=== PATIENT | male | born 1990 | race Caucasian/White ===

== ENCOUNTER 2024-10-08 10:30 | Emergency (ER) | payer SELFPAY ==
[2024-10-08 10:46] VITALS: RESP 18; TEMP 98; O2SAT 100
[2024-10-08] MEDS ORDERED: TORAdol 30 mg Injection ONE (11:22)
[2024-10-08] MEDS ORDERED: Norflex 60 MG/2 ML ONE (11:22)
[2024-10-08] MEDS: Norflex 60 MG/2 ML IM ONE (11:24)
[2024-10-08] MEDS: TORAdol 30 mg Injection IM ONE (11:25)
--- NOTE | 2024-10-08 11:30 | ERPHSYRPT ---
- History of Present Illness Time Seen by Provider: 10/08/24 11:27 Source: patient Exam Limitations: no limitations Patient Subjective Stated Complaint: C/O left neck, shoulder, arm pain for a week. Denies falls or injury. States, "I originally thought I just slept on it w ana but the pain wont' go away." Triage Nursing Assessment: Patient ambulated back to ER. He is alert and oriented. SKin tone normal. No SOB. No skin alterations noted to areas of reported pain. Physician History: C/O left neck, shoulder, arm pain for a week. Denies falls or injury. States, "I originally thought I just slept on it wrong but the pain wont' go away." Occurred: last week Method of Injury: unknown Quality: constant Severity of Pain-Max: moderate Severity of Pain-Current: moderate Extremities Pain Location: shoulder: left, arm: left Modifying Factors: Improves With: nothing Associated Symptoms: none Body Map: 1 - area of pain Allergies/Adverse Reactions: No Known Drug Allergies Allergy (Verified 10/08/24 10:39) Hx Tetanus, Diphtheria Vaccination/Date Given: Yes Immunizations Up to Date: Yes Travel Risk - International Travel Have you traveled outside of the country in past 3 weeks: No - Emerging Infectious Disease Are you exhibiting symptoms associated with any current EIDs: No - Review of Systems Constitutional: No Symptoms Eyes: No Symptoms Ears, Nose, & Throat: No Symptoms Respiratory: No Symptoms Cardiac: No Symptoms Abdominal/Gastrointestinal: No Symptoms Genitourinary Symptoms: No Symptoms Musculoskeletal: Neck Pain, Joint Pain, No Fall, No Injury, No Joint Redness, No Joint Swelling Skin: No Symptoms Neurological: No Symptoms Psychological: No Symptoms - Past Medical History Pertinent Past Medical History: Yes Psycho-Social History: Bipolar, Other Other Medical History: PTSD - Past Surgical History Past Surgical History: Yes Other Surgical History: left wrist - Social History Smoking Status: Former smoker Exposure to second hand smoke: Yes Drug Use: marijuana - Social Determinants of Health Will the patient participate in the screening: Declined to provide - Nursing Vital Signs Nursing Vital Signs: Initial Vital Signs Blood Pressure 130/81 10/08/24 10:39 O2 Sat by Pulse Oximetry 99 10/08/24 10:39 Pain Scale Pain Intensity 6 - Physical Exam General Appearance: no apparent distress Eyes, Ears, Nose, Throat Exam: normal ENT inspection Neck Exam: normal inspection Cardiovascular/Respiratory Exam: chest non-tender Abdominal Exam: non-tender Back Exam: normal inspection Shoulder Exam: normal ROM, pain, soft tissue tenderness, No no evidence of injury, No bone tenderness, No deformity Elbow/Forearm Exam: normal inspection Wrist Exam: normal inspection Hand Exam: normal inspection DTR - Upper Extremity Exam: bicep (R): 2+, bicep (L): 2+, tricep (R): 2+, tricep (L): 2+ Neuro/Tendon Exam: normal sensation, normal motor functions, normal tendon functions, responds to pain, no evidence tendon injury Mental Status Exam: alert, oriented x 3, cooperative Skin Exam: normal color SpO2 Interpretation: normal SpO2: 100 O2 Delivery: Room Air - Course Nursing assessment & vital signs reviewed: Yes - Radiology Exams C-Spine X-ray Interpretation: Interpreted by me, Reviewed by me, Negative, No Fracture, No Subluxation Shoulder X-ray Interpretation: Interpreted by me, Reviewed by me, Negative, No Fracture, No Subluxation Ordered Tests: Active Orders 24 hr Category Date Time Status CERVICAL SPINE (2 OR 3 VIEW) Stat Exams 10/08/24 11:09 Taken SHOULDER Stat Exams 10/08/24 11:09 Taken Medication Summary Discontinued Medications Generic Name Dose Route Start Last Admin Trade Name Rodriguez PRN Reason Stop Dose Admin Ketorolac Tromethamine 60 mg 10/08/24 11:10 10/08/24 11:25 Ketorolac Tromethamine 30 Mg/Ml Inj IM 10/08/24 11:11 60 mg STAT ONE Administration Ketorolac Tromethamine Confirm 10/08/24 11:22 Ketorolac Tromethamine 30 Mg/Ml Inj Administered 10/08/24 11:23 Dose 60 mg .ROUTE .STK-MED ONE Orphenadrine Citrate 60 mg 10/08/24 11:10 10/08/24 11:24 Orphenadrine Citrate 60 Mg/2 Ml Vial IM 10/08/24 11:11 60 mg STAT ONE Administration Orphenadrine Citrate Confirm 10/08/24 11:22 Orphenadrine Citrate 60 Mg/2 Ml Vial Administered 10/08/24 11:23 Dose 60 mg .ROUTE .STK-MED ONE - Progress Progress: improved, pain not gone completely Counseled pt/family regarding: need for follow-up, rad results Medical Desision Making - Independent Historian Additional History obtained from: Family - Diagnostic Testing Radiological Interpretation: Interpreted by me, Reviewed by me - Risk of complications Minimal Risk: Minimal risk of morbidity - Departure Departure Disposition: Home Clinical Impression: Bicipital tendinitis, left shoulder Left shoulder strain Qualifiers: Encounter type: initial encounter Qualified Code(s): S46.912A - Strain of unspecified muscle, fascia and tendon at shoulder and upper arm level, left arm, initial encounter Condition: Stable Critical Care Time: No Referrals: JG DALY MD [ACTIVE STAFF] - [facility] M-[id number] Instructions: Shoulder Tendinopathy (DC), Biceps tendinopathy Additional Instructions: Discharge/Care Plan MARIANA BEDOLLA was seen on 10/08/24 in the Emergency Room. The patient was counseled regarding Diagnosis,Lab results, Imaging studies, need for follow up and when to return to the Emergency Room. Prescriptions given: Discharge Note I have spoken with the patient and/or caregivers. I have explained the patient's condition, diagnosis and treatment plan based on the information available to me at this time. I have answered the patient's and/or caregiver's questions and addressed any concerns. The patient and/or caregivers have as good understanding of the patient's diagnosis, condition and treatment plan as can be expected at this point. The vital signs have been stable. The patient's condition is stable and appropriate for discharge from the emergency department. The patient will pursue further outpatient evaluation with the primary care physician or other designated or consulting physician as outlined in the discharge instructions. The patient and/or caregivers are agreeable to this plan of care and follow-up instructions have been explained in detail. The patient and/or caregivers have received these instruction. The patient/and or caregivers are aware that any significant change in condition or worsening of symptoms should prompt an immediate return to this or the closest emergency department or call 911. MARIANA BEDOLLA was seen on 10/08/24 n the Emergency Room. At that time you were treated for an emergent condition, during your visit Laboratory, Radiology and/or other procedures may have been ordered. It is very important that you follow-up with your Primary Care Physician within the next 24-48 hours to review your Emergency Room visit and the final results of testing that was order ed. Some test results such as Urine Cultures, Blood Cultures, and other cultures if ordered will not be finalized for 24-48 hours. If you do not have a Primary Care Provider please call the medical records department at [phone] to obtain a copy of your results or you may sign into our patient portal to obtain these results by visiting us @ [email or web address] and completing the following steps: 1. Click on the Patient Portal link 2. Click the Patient Self Enrollment Link to complete the enrollment form and entering your 3. Once the enrollment form is completed you will receive an email with a temporary ID and password at the email address you provided. 4. Next choose a user name and password. Your user name must be at least 4 characters long and your password must be at least 4 characters long. 5. Choose a security question from the list and provide your answer to the question. If you already have signed into the Health Portal you may access your Health Care Information 30/04 by the following steps: 1. Login to our website @ [email or web address] 2. Enter your original user name and password. FAQS The [facility] Portal is an online tool that contains your Lab Results, Radiology Reports, Visit History, Discharge Instructions and Health Summary Lab and Radiology Results will not be available for 72 hours on the portal. The Portal is a secure site, passwords are encryted and URLs are re-written so they cannot be copied and pasted. You and authorized family members are the only ones who can access your Portal. Also there is a timeout feature that protects your information if you leave the Portal page open. If you have technical difficulty please use the Contact Us link on the page this will allow you to submit any questions you have regarding the Portal or you may contact the Medical Record Department at [phone]. Forms: Work/School Release Form Prescriptions: Cyclobenzaprine HCl 10 mg [Flexeril 10 MG] 10 mg PO TID #30 tablet Ketorolac Trometh 10 mg Tab [TORAdol 10 MG TABLET] 10 mg PO QID #20 tablet
[2024-10-08 11:50] VITALS: BP 106/69; PULSE 54
--- NOTE | 2024-10-08 18:10 | XRAY ---
Indication: Left neck pain. Comparison: None 3 view cervical spine demonstrates incompletely visualized mild levoscoliosis centered at T2 and minimal C5-C6 disc space narrowing/endplate spurring. Prominent bilateral C7 transverse processes which can be seen with thoracic outlet syndrome. No other bony, articular, or soft tissue abnormalities.
--- NOTE | 2024-10-08 18:10 | XRAY ---
Indication: Pain. Comparison: None 3 view left shoulder demonstrates mild levoscoliosis centered at T2. No other bony, articular, or soft tissue abnormalities.
== END 2024-10-08 12:00 | disposition home or self-care (01) ==
LOC: ED 10:30
DX: S46.912A Strain of unspecified muscle, fascia and tendon at shoulder and upper arm level, left arm, initial encounter (principal); M75.22 Bicipital tendinitis, left shoulder; M54.2 Cervicalgia; M25.512 Pain in left shoulder; M79.602 Pain in left arm
CPT/HCPCS: 72040; 73030; 96372; 99283; 99285; J1885; J2360